=== PATIENT | male | born 1990 | race Caucasian/White ===

== ENCOUNTER 2020-04-08 14:15 | Emergency (ER) | payer MEDICAID, OTHER ==
[~2020-04-08] VITALS: Ht 165.1 cm; Wt 81.6 kg
--- NOTE | 2020-04-08 14:53 | NUR ---
pt was evaluated by dr corley. pt was d/c'd to home. d/c instructions given to the pt by dr Corley.
[2020-04-08 14:54] VITALS: BP 131/71
== END 2020-04-08 15:51 | disposition home or self-care (01) ==
LOC: ER 14:15
DX: Z76.0 Encounter for issue of repeat prescription (principal); F41.9 Anxiety disorder, unspecified; J45.909 Unspecified asthma, uncomplicated
CPT/HCPCS: A4663